=== PATIENT | male | born 1970 | race Caucasian/White ===

== ENCOUNTER 2016-12-02 10:35 | Emergency (ER) | payer MEDICAID ==
[~2016-12-02] VITALS: Ht 188 cm; Wt 81.6 kg
[2016-12-02 10:44] VITALS: BP 137/87; PULSE 80; RESP 16; TEMP 98.4; O2SAT 97
--- NOTE | 2016-12-02 10:51 | NUR ---
Patient to ER bed 5 to gown for evaluation. Side rails up. Report given to Navi MIRZA.
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
--- NOTE | 2016-12-02 11:07 | NUR ---
Dr. Ackerman at bedside for evaluation
[2016-12-02 11:22] LABS: BILIRUBIN,URINE NEGATIVE (NEGATIVE); BLOOD, URINE 3+ (NEGATIVE); CLARITY/URINE SL HAZY (CLEAR); COLOR,URINE RED (YELLOW); GLUCOSE,URINE NEGATIVE (NEGATIVE); KETONES,URINE NEGATIVE (NEGATIVE); LEUKOCYTE ESTERASE ,URINE NEGATIVE (NEGATIVE); NITRITE, URINE NEGATIVE (NEGATIVE); PROTEIN URINE NEGATIVE (NEGATIVE); UROBILINOGEN,URINE 0.2 (0.2-1.0)
[2016-12-02 11:49] LABS: BACTERIA,URINE FEW /HPF (None Seen); MUCUS,URINE None Seen /LPF (None Seen); RBC,URINE >100 /HPF (0-3); WBC,URINE 0-3 /HPF (0-3)
--- NOTE | 2016-12-02 11:59 | NUR ---
Patient given written and verbal discharge instructions and verbalizes understanding. ER MD discussed with patient the results and treatment provided. Given copies of tests performed in ER. Patient in stable condition. ID arm band removed. Patient educated on pain management and to follow up with PMD. Pain Scale 0/10. Opportunity for questions provided and answered.
[2016-12-02 12:00] VITALS: BP 136/76; PULSE 76; RESP 16; TEMP 97.6; O2SAT 97
== END 2016-12-02 12:00 | disposition home or self-care (01) ==
LOC: SED 10:35
DX: S30.22XA Contusion of scrotum and testes, initial encounter (principal); V43.93XA Unspecified car occupant injured in collision with pick-up truck in traffic accident, initial encounter; Y93.89 Activity, other specified; Y92.89 Other specified places as the place of occurrence of the external cause; Y99.8 Other external cause status
CPT/HCPCS: 81000-TC; 99283